=== PATIENT | female | born 1985 | race Caucasian/White ===

== ENCOUNTER 2021-11-17 08:00 | Outpatient (RCR) | payer OTHER, SELFPAY ==
--- NOTE | 2021-08-21 14:01 | PTOPEVAL ---
PHYSICAL THERAPY INITIAL EVALUATION. Thank you for referring Maite Parker to [facility].? The patient is scheduled to be seen for therapy? ____x/week for ___ weeks. Please review, sign, date and return this plan of care MUNA. I agree with and certify that the following plan of care is medically necessary. Referring Physician Date Attending Provider: Jens Combs, MD *PT Outpatient Evaluation Start: 08/21/21 Evaluation Information Diagnosis R shoulder anterior labrum repair Onset 08/06/2021 Cause Post-op Subjective Information Pt states she had surgery 08/06 Query Text:As Reported By Patient. Pt states she has been Family wearing her sling all the time , and most of the time at night. 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 Pt states she likes to exercise and would to return to exercise when possible. Pain Score 1: Self Report Scapular/ Shoulder Range of Motion Right Shoulder Flexion - Passive 90 Shoulder Lateral Rotation - Passive 22 Scapular/Shoulder Range of Motion Passive ER measure in supine Comments and in the scapular plane Gross Upper Extremity Strength Comments L grossly 4+/5 R UE not tested due to surgical precautions General Exercises Side Right Exercise Type Isometric Exercise Description -Seated scapular retractions Query Text:Record Sets, Reps, - Standing at wall: R shoulder Resistance, and Position flexion, extension, and abduction isometrics -10 reps of each with 1-2 second hold Additional Rehab Teaching Comments HEP given this date. PT Clinical Summary Maite presents to physial therapy today status post an anterior labral repair on 08/06. Today she demonstrates good passive flexion and fair passive external rotation. Skilled physial therapy services are needed to progress her strength, range of motion, progress towards functional mobility and monitor her through her protocol.
[2021-09-18 09:03] VITALS: BP_SYST 110
--- NOTE | 2021-09-18 14:40 | PTOPEVAL ---
PHYSICAL THERAPY PROGRESS NOTE. Thank you for referring Maite Parker to [facility].? The patient is scheduled to be seen for therapy?2 x/week for 4 weeks. Please review, sign, date and return this plan of care MUNA. I agree with and certify that the following plan of care is medically necessary. Referring Physician Date Attending Provider: Jens Combs, MD *PT Outpatient Evaluation Start: 08/21/21 Evaluation Information Diagnosis R shoulder anterior labrum repair Onset Surgery on 08/06/2021 Subjective Information Pt reports she thinks things Query Text:As Reported By Patient/ are going great. She states Family she stated running a little bit last week and tweaked it a little. She is a little sore from running and was advised to not run yet. Upper Extremity Range of Motion Right Shoulder Flexion - Active 116 Shoulder Flexion - Passive 140 Shoulder Abduction - Active 128 Shoulder Abduction - Passive 110 Shoulder Medial Rotation - Active 52 Shoulder Medial Rotation - Passive 52 Shoulder Lateral Rotation - Passive 35 Scapular/Shoulder Range of Motion Passive ER measure in supine Comments and in the scapular plane. 30 deg of ER with shoulder at 80 deg of abduction. Upper Extremity Muscle Strength Testing Right Shoulder Flexion Strength 4 Good Shoulder Abduction Strength 4 Good Shoulder Medial Rotation Strength 4 Good Shoulder Lateral Rotation Strength 4 Good Manual Therapy Side Right Manual Therapy Location Shoulder Patient Position Supine Manual Therapy Treatment Passive Stretching,Soft Tissue Mobilization Treatment Comments - passive shoulder flexion to Query Text:Include Technique and within tolerance Result of Technique - passive shoulder external rotation with UE in 90 deg of abduction to 30 degrees PT Clinical Summary Maite presents today for her progress note following an anterior labral repair on 08/06. She has completed 4 weeks of physical therapy and is progressing well. She has meet all of the goals of phase 1 and 2 of her protocol excluding shoulder ER, but is making progress with this. Phase 3 of her protocol
--- NOTE | 2021-10-02 09:30 | PCPTNOTE ---
Patient called and left message needing a later time this date. No later times available on schedule therefore patient required to cancel due to not being able to make appointment.
[2021-10-16 09:03] VITALS: BP_SYST 120
--- NOTE | 2021-10-16 11:48 | PTOPEVAL ---
PHYSICAL THERAPY PROGRESS REPORT. Thank you for referring Maite Parker to [facility].? The patient is scheduled to be seen for therapy?2x/week for 6 weeks. Please review, sign, date and return this plan of care MUNA. I agree with and certify that the following plan of care is medically necessary. Referring Physician Date Attending Provider: Jens Combs, Evaluation Information Diagnosis R shoulder anterior labrum repair Onset Surgery on 08/06/2021 Subjective Information Pt states she is having no Query Text:As Reported By Patient/ shoulder pain, she states she Family cannot sleep on her shoulder. She reports the most difficulty with shoulder abduction. Pain Assessment Right Shoulder(s) Reported Pain Level 0 Greatest Pain Intensity 0 Upper Extremity Range of Motion General Upper Extremity Range of Motion WNL/Left Scapular/ Shoulder Range of Motion Right Reason Not Measured WNL/Left,Surgery Precautions Scapular: Retraction Normal Scapular Downward Rotation Normal Scapular Upward Rotation Normal Shoulder Flexion - Active 133 Shoulder Flexion - Passive 140 Shoulder Abduction - Active 115 Shoulder Abduction - Passive 120 Shoulder Medial Rotation - Active 65 Shoulder Medial Rotation - Passive 65 Shoulder Lateral Rotation - Passive 37 Scapular/Shoulder Range of Motion Passive ER measure in supine Comments and in the scapular plane. 45 deg of ER with shoulder at 80 deg of abduction. Abduction measured in true abduction vs scaption Upper Extremity Muscle Strength Testing General Upper Extremity Strength L grossly 4+/5 Right Shoulder Flexion Strength 4 Good Shoulder Extension Strength 4+ Good + Shoulder Abduction Strength 4 Good Shoulder Horizontal Abduction Strength 4- Good - Shoulder Horizontal Adduction Strength 4- Good - Shoulder Medial Rotation Strength 4+ Good + Shoulder Lateral Rotation Strength 4+ Good + PT Clinical Summary Maite presents today for her progress note following an anterior labral repair on 08/06. She has completed 8 weeks of physical therapy and is progressing well. She has meet all of the goals of phase 1-2 of her protocol. She started Phase 3 of her protocol on 05/01 and she is progressing
--- NOTE | 2021-10-20 09:01 | PCPTNOTE ---
Patient did not show up for scheduled appointment this date. Called and left voicemail about missed appointment. Reminded Pt of upcoming appointment on Tuesday10/23/21 @ 08:30am. This is Pt's first N/S.
--- NOTE | 2021-10-26 08:59 | PCPTNOTE ---
Patient did not show up for scheduled appointment this date. Called and spoke with Pt. She apologized for forgetting due to her appointments usually being on Tuesday and Tuesday. Reminded Pt on upcoming appointment on Tuesday. This is Pt's 2 N/S.
--- NOTE | 2021-10-30 09:56 | PCPTNOTE ---
Patient did not show up for scheduled appointment this date. Called and spoke with the patient, she states she completely forgot. Confirmed her appointment on 11/03 with her.
--- NOTE | 2021-11-17 08:25 | PCPTNOTE ---
Patient did not show up for scheduled appointment this date.
--- NOTE | 2021-11-18 09:24 | PCPTNOTE ---
This treatment is being continued on visit number [id number]. Please see documentation on both accounts to view progress. Completed interventions, outcomes, and problems have been marked as Inactive to facilitate the copying of the Care plan routine for recurring accounts.
== END 2021-11-18 07:59 | disposition home or self-care (01) ==
LOC: ANHPT 08:00
PROVIDERS: Referring Provider Orthopaedic Surgery Sports Medicine; Visit Provider Orthopaedic Surgery Sports Medicine
DX: Z48.89 Encounter for other specified surgical aftercare (principal); M25.311 Other instability, right shoulder
CPT/HCPCS: 97110; 97112; 97140; 97161; 97530

== ENCOUNTER 2021-11-27 08:00 | Outpatient (RCR) | payer OTHER, SELFPAY ==
[2021-11-18 07:59] VITALS: BP_SYST 120
--- NOTE | 2021-11-18 09:25 | PCPTNOTE ---
The treatment documented on this account is a continuation of the treatment documented on visit number [id number]. Please see documentation on both accounts to view progress. The Plan of Care has been transitioned and updated within the new V#. I have addressed and agree with the discipline specific Problems, Interventions, and Goals for the current certification period. Completed interventions, outcomes, and problems have been marked as Inactive to facilitate the copying of the Care plan routine for recurring accounts.
[2021-11-27 08:05] VITALS: BP_SYST 164
--- NOTE | 2021-11-27 10:56 | PTOPEVAL ---
PHYSICAL THERAPY PROGRESS REPORT AND DISCHARGE SUMMARY. Thank you for referring Maite Parker to [facility].? The patient is scheduled to be discharged from skilled physical therapy services at this time. Please review, sign, date and return this plan of care MUNA. I agree with and certify that the following plan of care is medically necessary. Referring Physician Date Attending Provider: Jens Combs, MD *PT Outpatient Evaluation Start: 11/27/21 Evaluation Information Diagnosis R shoulder anterior labrum repair Onset Surgery on 08/06/2021 Subjective Information Pt states she has no pain. She Query Text:As Reported By Patient/ states she feels like her Family shoulder is 80% of what it was before. She feels like her strength is progressing well as is her range of motion. Pt states she would like to be able to do a one handed cartwheel again. Pain Assessment Pain Score Pain Score 0: Self Report Upper Extremity Range of Motion General Upper Extremity Range of Motion WNL/Left Scapular/ Shoulder Range of Motion Right Shoulder Flexion - Active 156 Shoulder Flexion - Passive 167 Shoulder Abduction - Active 148 Shoulder Abduction - Passive 164 Shoulder Medial Rotation - Passive 64 Shoulder Medial Rotation - Active T7 Shoulder Lateral Rotation - Passive 54 Shoulder Lateral Rotation - Active T3 Scapular/Shoulder Range of Motion L active shoulder flexion: 172 Comments L active shoulder abduction: 172 L function ext. rot./ IR: T4,T5 Upper Extremity Muscle Strength Testing Scapular/Shoulder Right Shoulder Flexion Strength 5 Normal Shoulder Abduction Strength 4+ Good + Shoulder Medial Rotation Strength 5 Normal Shoulder Lateral Rotation Strength 4+ Good + Posture Posture Evaluation View Posterior Head/C-Spine Posture Neutral Position Thoracic Spine Posture Neutral Lumbar Spine Posture Neutral Shoulder Posture Neutral Palpation Assessment Palpation mild tenderness through cap of deltoid General Exercise Exercise Description - pulleys in flexion, Query Text:Record Sets, Reps, extension, IR for active warm Resistance, and Position up - education on continuing home stretching program - education given on return to gym workouts - demonstrated and practices: shoulder abduction, forward
== END 2021-12-29 12:02 | disposition home or self-care (01) ==
LOC: ANHPT 08:00
PROVIDERS: Referring Provider Orthopaedic Surgery Sports Medicine; Visit Provider Orthopaedic Surgery Sports Medicine
DX: Z48.89 Encounter for other specified surgical aftercare (principal); M25.311 Other instability, right shoulder
CPT/HCPCS: 97110; 97112; 97140; 97530

== ENCOUNTER 2023-02-28 13:26 | Emergency (ER) | payer OTHER, SELFPAY ==
[2023-02-28 13:38] VITALS: BP 110/55; PULSE 52; RESP 16; TEMP 36.9; O2SAT 100
--- NOTE | 2023-02-28 13:58 | ED.URI ---
HPI - URI/Sore Throat General Chief Complaint: Upper Respiratory Infection Stated Complaint: Sore throat Time Seen by Provider: 02/28/23 13:52 Source: patient and RN notes reviewed Mode of arrival: ambulatory Limitations: no limitations History of Present Illness HPI Narrative: Patient presents today with a 5 day history of sore throat that has been worsening since onset, but is only present with swallowing. Reports chills that started today, but denies any additional symptoms to include congestion, rhinorrhea, cough, fever. Currently rates her pain 7/10 with swallowing. She has tried cough drops and green tea. Related Data Allergies Allergy/AdvReac Type Severity Reaction Status Date / Time No Known Allergies Allergy Verified 02/28/23 13:53 Review of Systems Review of Systems: CONSTITUTIONAL: Denies body aches, fever, or sweats.+ chills EYES: Denies visual changes, redness, or discharge. ENT: Denies rhinorrhea, congestion, or otalgia.+ sore throat CARDIOVASCULAR: Denies chest pain, palpitations, or edema. RESPIRATORY: Denies cough or dyspnea. GASTROINTESTINAL: Denies abdominal pain, nausea, vomiting, or diarrhea. GENITOURINARY: Denies dysuria or hematuria. SKIN: Denies rash, itching, or wounds. MUSCULOSKELETAL: Denies back pain, joint pain, or myalgia. NEUROLOGIC: Denies headache, numbness, tingling, or weakness. PSYCH: Denies depression or anxiety. PMFSH Comments At time of signature, I have reviewed and agree with nursing past medical, surgical, social and family history unless otherwise noted. Please see nursing chart for further information. There is no relevant family history pertinent to the presenting complaint Exam Narrative: GENERAL: Well-appearing, well-nourished, and in no acute distress. HEAD: Normocephalic, atraumatic. EYES: EOMI. No redness or drainage. Conjunctivae normal. ENT: Mucous membranes pink and moist. Nares clear. No rhinorrhea. TMs normal bilaterally. Throat moderately erythematous without edema or exudate. Uvula midline. NECK: Normal AROM. Supple. No lymphadenopathy. CHEST: No respiratory distress. Clear to auscultation. HEART: Regular rate and rhythm. No murmur appreciated. Normal peripheral pulses. EXTREMITIES: Normal range of motion. No edema. SKIN: Warm, dry, no rash. Capillary refill normal. Normal skin turgor. NEURO: No focal deficits. Alert and oriented x3. Gait steady. PSYCH: Normal affect. No signs of depression or anxiety. Course Course Level of Care: Express Care Visit Vital Signs Vital signs: Vital Signs Temperature 98.5 F 02/28/23 13:38 Pulse Rate 52 L 02/28/23 13:38 Respiratory Rate 16 02/28/23 13:38 Blood Pressure 110/55 L 02/28/23 13:38 Pulse Oximetry 100 02/28/23 13:38 Oxygen Delivery Room Air 02/28/23 13:38 Temperature 98.5 F 02/28/23 13:38 Pulse Rate 52 L 02/28/23 13:38 Respiratory Rate 16 02/28/23 13:38 Blood Pressure 110/55 L 02/28/23 13:38 Pulse Oximetry 100 02/28/23 13:38 Oxygen Delivery Room Air 02/28/23 13:38 Reviewed MDM - URI/Sore Throat MDM Narrative Medical decision making narrative: Rapid strep negative. Culture pending. Symptoms likely viral in etiology. No further testing indicated. No prescription medications indicated at this time. Anticipatory guidance given. Differential Diagnosis Differential diagnosis: Likely upper respiratory infection, viral infection, pharyngitis and other (Strep throat) Lab Data Attestation: I reviewed the patient's lab results. Labs: Strep Screen Presumptive Negative *(Reference Range: Negative)* Critical Care Time Critical Care Time Critical Care Time: No Discharge Plan Discharge Clinical Impression: Pharyngitis Qualifiers: Pharyngitis/tonsillitis etiology: unspecified etiology Qualified Code(s): J02.9 - Acute pharyngitis, unspecified Patient Disposition: Home, Self-Care Co
== END 2023-02-28 14:05 | disposition home or self-care (01) ==
PROVIDERS: Emergency Provider Nurse Practitioner; PCP Emergency Medicine
DX: J02.9 Acute pharyngitis, unspecified (principal)
CPT/HCPCS: 87081; 87880; 99213; G0463

== ENCOUNTER 2023-10-20 11:33 | Outpatient (CLI) | payer OTHER, SELFPAY ==
--- NOTE | ~2023-10-20 | MMUS_ITS ---
EXAMINATION: MM diag dali implant BI w kenyatta, US breast BI complete HISTORY: Pinching sensation inferomedial right breast TECHNIQUE: Implant displaced ML, MLO and CC 3-D tomosynthesis images of both breasts were performed a nd synthetic 2-D images were generated. Implant MLO, ML and CC views. CAD analysis was submitted and interpreted. High resolution complete bilateral breast ultrasound examination including all four quad rants and subareolar areas was performed. COMPARISON: None BREAST PARENCHYMAL COMPOSITION: The breasts are extremely dense, which lowers the sensitivity of mamm ography. FINDINGS: MAMMOGRAPHIC FINDINGS: Status post bilateral augmentation mammoplasty. No suspicious mass or architectural distortion, malig nant calcification, skin thickening or retraction is detected. ULTRASOUND: 3 mm cyst of right breast at 12:00 5 cm from nipple. Benign calcification on the left. No suspicious mass or shadowing is detected. IMPRESSION: 1. No evidence of malignancy 2. Routine annual mammographic screening beginning at age 40 is recommended. BIRADS Category 2: Benign Reviewed, dictated and finalized at location A. IMPRESSION: 1. No evidence of malignancy 2. Routine annual mammographic screening beginning at age 40 is recommended. BIRADS Category 2: Benign
== END 2023-10-20 11:34 | disposition home or self-care (01) ==
PROVIDERS: PCP Emergency Medicine; Visit Provider Nurse Practitioner Family
DX: N63.10 Unspecified lump in the right breast, unspecified quadrant (principal)
CPT/HCPCS: 76641; 77062; 77066; G0279

== ENCOUNTER 2023-11-15 10:36 | Emergency (ER) | payer OTHER, SELFPAY ==
--- NOTE | 2023-11-15 10:38 | ED.FEMALEGU ---
HPI - Female Genitourinary General Chief complaint: Urogenital-Female Stated complaint: UTI Time Seen by Provider: 11/15/23 10:38 Source: patient Mode of arrival: ambulatory Limitations: no limitations History of Present Illness HPI Narrative: Patient is a 38-year-old female presents with 1 week of burning with urination, urgency and frequency. Does report low back pain but also has chronic low back pain. Denies any lower pelvic pain, fever, chills, nausea, vomiting, diarrhea. Has been trying [id number] medications and drinking increased amounts water. Does report her blood pressure and heart rate are normally low. Last visit heart rate was 52 and blood pressure was 110/55. MD elicited complaint: dysuria Related Data Allergies Allergy/AdvReac Type Severity Reaction Status Date / Time No Known Allergies Allergy Verified 11/15/23 10:39 Review of Systems Review of Systems: All systems reviewed & are unremarkable except as noted in HPI and below Constitutional: Constitutional: Denies chills, Denies fever(s), Denies headache(s), Denies malaise and Denies weakness Eyes: Eyes: Denies change in vision, Denies eye discharge and Denies irritation ENT: Denies otalgia, Denies headache(s), Denies nasal congestion, Denies nasal discharge, Denies sinus pain and Denies sore throat Cardiovascular: Cardiovascular: Denies chest pain, Denies edema, Denies palpitations and Denies dyspnea Respiratory: Respiratory: Denies cough and Denies dyspnea Gastrointestinal: Gastrointestinal: Denies abdominal pain, Denies diarrhea, Denies nausea and Denies vomiting Genitourinary: Genitourinary: Denies hematuria, Reports nocturia, Reports dysuria, Reports flank pain and Reports urinary urgency Musculoskeletal: Musculoskeletal: Denies back pain and Denies numbness Integumentary/Breasts: Skin/Breast: Denies pruritus and Denies rash Neurologic: Denies headache(s), Denies numbness and Denies weakness Psychiatric: Psychiatric: Reports no additional psychiatric complaints Endocrine: Endocrine: Denies palpitations PMFSH Comments At time of signature, agree with nursing past medical, surgical, social and family history. There is no relevant family history pertinent to the presenting complaint. Exam Const: General: cooperative, healthy appearing, comfortable, no acute distress and well nourished Nutritional Appearance: well nourished Orientation/consciousness: patient oriented x3 HENMT: Head: normocephalic and atraumatic Ears: external ears normal Face/Nose/Sinus: Normal external nose present, Normal nares present and normal facial exam Face and sinus: normal facial exam Eyes: General: appearance normal, both eyes and all related structures Pupils: Equal, round and reactive pupils present EOM: EOMs intact bilaterally Neck: Neck: normal visual inspection, full ROM and supple Chest: Chest palpation & inspection: normal inspection of the chest Resp: Effort & Inspection: normal respiratory effort and able to speak in complete sentences Cardio: Rate: regular rate Rhythm: regular rhythm GI: Inspection: normal to inspection GI Palp: No abdominal tenderness and Yes Soft to palpation : General: Yes no CVA tenderness Back/Spine/Pelvis: Back: no CVA tenderness Skin: General skin exam: normal color and no rashes or lesions noted Neuro: General: patient oriented x3 and moves all extremities Cranial nerves: Yes Equal, round and reactive pupils present Extrem: General: normal to inspection and full ROM Psych: Appearance: grossly normal and well kempt Course Course Emergency Course: Patient is aware of diagnosis, understands and agrees to treatment plan. Anticipatory guidance given. Patient agrees to follow-up as directed and is aware of reasons to seek care at the emergency department. Portions of this record may have been created with voice recognition software Level of Care: Express Care Visit Vital Signs Vital signs: Vital Si
[2023-11-15 10:44] VITALS: BP 95/50; PULSE 48; RESP 16; TEMP 36.9; O2SAT 100
== END 2023-11-15 11:08 | disposition home or self-care (01) ==
PROVIDERS: Emergency Provider Nurse Practitioner Family; PCP Emergency Medicine
DX: N39.0 Urinary tract infection, site not specified (principal)
CPT/HCPCS: 81003; 87086; 99213; G0463